=== PATIENT | female | born 1970 ===

== ENCOUNTER 2019-12-08 10:15 | Inpatient (IN) | payer OTHER ==
[~2019-12-08] VITALS: Ht 157.5 cm; Wt 63.5 kg
[2019-12-08] MEDS ORDERED: NORVASC2.5 M1 PO (11:51)
[2019-12-08] MEDS ORDERED: MICROZIDE12.5 MG PO (11:53)
== END 2019-12-16 16:49 | disposition home or self-care (01) | DRG 331 ==
LOC: O/R 12-14 07:22 → SURH 12-14 10:15 → SURG 12-14 19:50
PROVIDERS: ADMIT Colon & Rectal Surgery
PROC: 0DJD8ZZ Inspection of Lower Intestinal Tract, Via Natural or Artificial Opening Endoscopic (ICD-10-PCS; 2019-12-14)
PROC: 0DTN4ZZ Resection of Sigmoid Colon, Percutaneous Endoscopic Approach (ICD-10-PCS; principal; 2019-12-14 11:00)
DX: K57.20 Diverticulitis of large intestine with perforation and abscess without bleeding (principal); K57.50 Diverticulosis of both small and large intestine without perforation or abscess without bleeding